=== PATIENT | male | born 2000 | race Hispanic/Latino ===

== ENCOUNTER 2020-01-14 13:35 | Emergency (ER) | payer OTHER ==
[~2020-01-14] VITALS: Ht 165.1 cm; Wt 84.1 kg
[2020-01-14 14:39] LABS: BASO # 0.1 10^3/uL (0.0-0.2); BASO % 0.4 % (0.0-1.0); EOS % 0.3 % (0.0-3.0); HEMATOCRIT 47.2 % (42.0-52.0); HEMOGLOBIN 16.2 g/dl (13.5-17.5); LYMPH % 16.4 % (24.0-44.0); MEAN CORPUSCULAR HGB CONC 34.3 g/dl (32.0-36.5); MEAN CORPUSCULAR VOLUME 87.4 fl (80.0-96.0); MONO % 8.3 % (0.0-5.0); NEUTROPHILS # 8.8 10^3/uL (1.5-8.5); NEUTROPHILS % 74.2 % (36.0-66.0); PLATELET COUNT, AUTOMATED 311 10^3/uL (150-450); WHITE BLOOD COUNT 11.9 10^3/uL (4.0-10.0)
[2020-01-14] MEDS ORDERED: NS 1,000 ML IV ONE ×2 (15:15→16:00)
[2020-01-14] MEDS ORDERED: ACETAMINOPHEN 500 MG TAB PO ONE (19:00)
[2020-01-14 19:52] VITALS: BP 130/67
--- NOTE | 2020-01-15 01:24 | ECGEPIP ---
[facility] - ED Test Date: 2020-01-14 Pat Name: MIRANDA SLOAN Department: Room: - Gender: Male Manager Adult: JMadelaine : 2000 Requested By: FUNMI Rizzo Order Number: [id number] Reading MD: Jerome Nickerson Measurements Intervals [place] Rate: 77 P: 69 LA: 147 QRS: 62 QRSD: 83 T: 30 QT: 360 QTc: 408 Interpretive Statements SINUS RHYTHM Comparison tracing not on file Electronically Signed on 01-15-2020 1:24:17 EDT by Jerome Nickerson
== END 2020-01-14 19:58 | disposition home or self-care (01) ==
LOC: M ED 13:35
DX: M62.82 Rhabdomyolysis (principal)